=== PATIENT | male | born 1945 | race African-American/Black ===

== ENCOUNTER → 2018-08-25 | Outpatient (CLI) | payer MEDICARE, OTHER ==
--- NOTE | 2018-08-25 10:15 | RADIOLOGY REPORT (SQ) ---
EXAM DESCRIPTION: CHEST 2 VIEWS COMPLETED DATE/TIME: 08/25/2018 10:08 am REASON FOR STUDY: COUGH (R05) COMPARISON: AP chest 10/12/2015 EXAM PARAMETERS: NUMBER OF VIEWS: two views TECHNIQUE: Digital Frontal and Lateral radiographic views of the chest acquired. RADIATION DOSE: NA LIMITATIONS: none FINDINGS: LUNGS AND PLEURA: No opacities, masses or pneumothorax. No pleural effusion. MEDIASTINUM AND HILAR STRUCTURES: No masses or contour abnormalities. HEART AND VASCULAR STRUCTURES: Heart normal size. No evidence for failure. BONES: No acute findings. HARDWARE: None in the chest. OTHER: No other significant finding. IMPRESSION: NO ACUTE RADIOGRAPHIC FINDING IN THE CHEST. TECHNICAL DOCUMENTATION: JOB ID: [id number] [employer]- All Rights Reserved Reading location - IP/workstation name: [email or web address]-[email or web address]
== END ==
LOC: RAD 09:52
PROVIDERS: ATTEND Internal Medicine Gastroenterology
DX: R05 Cough (principal)
CPT/HCPCS: 71046

== ENCOUNTER 2018-10-01 07:44 | Emergency (ER) | payer MEDICARE, OTHER ==
--- NOTE | 2018-10-01 08:05 | ER Document Report ---
ED General - General TRAVEL OUTSIDE OF THE [place] IN LAST 30 DAYS: No <ASIF FAROOQ A - Last Filed: 10/01/18 08:04> <MAYAJOSÉ MANUEL CohenReese Johns - Last Filed: 10/01/18 16:17> - General Chief Complaint: Productive Cough Stated Complaint: COUGH Time Seen by Provider: 10/01/18 08:03 Notes: Patient is a 73-year-old male that presents to the emergency department for chief complaint of cough. Patient reports his been having cough, congestion and runny nose for approximately 1 month now, he is initially treated with Tessalon Perles, and doing [id number] medications such as Coricidin, Mucinex, and Robitussin without much relief of his symptoms, so he decided to come to the emergency department to be reevaluated today. He states his cough has not gotten much better despite these other treatments, he denies having any shortness of breath or difficulty breathing, he denies having any chest pain, shortness of breath, abdominal pain, nausea, vomiting, fevers, chills or night sweats. Denies any other complaints at this time. Past Medical History: Hyperlipidemia, GERD Past Surgical History: Total hip arthroplasty, TURP procedure Social History: Denies tobacco, alcohol or drug use. Family History: Reviewed and noncontributory for presenting illness Allergies: Reviewed, see documented allergy list. REVIEW OF SYSTEMS: Other than noted above, the 12 point review of systems was reviewed with the patient and were negative, all pertinent findings are included in the HPI. PHYSICAL EXAMINATION: Vital signs reviewed, nursing noted reviewed. GENERAL: Well-appearing, well-nourished and in no acute distress. HEAD: Atraumatic, normocephalic. EYES: Eyes appear normal, extraocular movements intact, sclera anicteric, conjunctiva are normal. ENT: Mild bilateral nasal turbinate injection, oropharynx clear without exudates. Moist mucous membranes. NECK: Normal range of motion, supple without lymphadenopathy LUNGS: Breath sounds clear to auscultation bilaterally and equal. No wheezes rales or rhonchi. HEART: Regular rate and rhythm without murmurs ABDOMEN: Soft, nontender, normoactive bowel sounds. No rebound, guarding, or rigidity. No masses appreciated. EXTREMITIES: Nontender, good range of motion, no pitting or edema. NEUROLOGICAL: No focal neurological deficits. Moves all extremities spontaneously Motor and sensory grossly intact on exam. PSYCH: Normal mood, normal affect. SKIN: Warm, Dry, normal turgor, no rashes or lesions noted on exposed skin (MARIA M MAYA) - Related Data Allergies/Adverse Reactions: No Known Allergies Allergy (Verified 10/01/18 07:44) Past Medical History - Social History Family History: Reviewed & Not Pertinent - Past Medical History Cardiac Medical History: Reports: Hx Hypercholesterolemia, Hx Hypertension Renal/ Medical History: Reports: Hx Benign Prostatic Hyperplasia Musculoskeletal Medical History: Reports Hx Arthritis Psychiatric Medical History: Reports: Hx Depression, Hx Post Traumatic Stress Disorder Past Surgical History: Reports: Hx Orthopedic Surgery - Left total hip for arthritis - Immunizations Hx Pneumococcal Vaccination: 09/29/14 <ASIF FAROOQ - Last Filed: 10/01/18 08:04> - Social History Smoking Status: Never Smoker Family History: Reviewed & Not Pertinent <MARIA M MAYA - Last Filed: 10/01/18 16:17> - Vital signs Vitals: Temp Pulse Resp BP Pulse Ox 98.1 F 59 L 18 127/76 H 100 10/01/18 07:47 10/01/18 07:47 10/01/18 07:47 10/01/18 07:47 10/01/18 07:47 Course - Laboratory Result Diagrams: 10/01/18 08:10 10/01/18 08:10 <MARIA M MAYA - Last Filed: 10/01/18 16:17> - Re-evaluation Re-evalutation: Patient seen and examined vital signs reviewed. Laboratory data and imaging were ordered as appropriate for the patient's presenting symptoms and complaint, with consideration of any critical or life threatening conditions that may be associated with their obtained history and exam as noted above. Results were reviewed when available and demonstrated leukopenia, with elevated lymphocyte count, 55%, on my exam the patient did not have any lymphadenopathy, cervical or otherwise, blood work otherwise unremarkable, chest x-ray negative The patient was re-evaluated and was stable, at this point we will plan on discharging the patient on antibiotics, and Flonase, advised to follow-up with his primary care physician if his symptoms did not improve, or to return to the emergency department which she was agreeable to. Results were discussed with the patient at this point, after careful consideration I feel that that patient can be discharged from the emergency department, the patient was educated treatments and reasons to return to the emergency department based on their presumed diagnosis as noted above, they were advised to followup with a primary care physician in 2-3 days. Patient was agreeable to plan of care. *Note is created using voice recognition software and may contain spelling, syntax or grammatical errors. Laboratory 10/01/18 10/01/18 10/01/18 08:10 08:10 08:10 WBC 2.8 L RBC 5.00 Hgb 14.3 Hct 43.4 MCV 87 MCH 28.5 MCHC 32.9 RDW 15.6 H Plt Count 174 Seg Neutrophils % 31.3 L Lymphocytes % 55.5 H Monocytes % 10.5 Eosinophils % 2.4 Basophils % 0.3 Absolute Neutrophils 0.9 L Absolute Lymphocytes 1.5 Absolute Monocytes 0.3 Absolute Eosinophils 0.1 Absolute Basophils 0.0 Sodium 140.0 Potassium 4.3 Chloride 105 Carbon Dioxide 27 Anion Gap 8 BUN 17 Creatinine 0.69 Est GFR ( Amer) > 60 Est GFR (Non-Af Amer) > 60 Glucose 96 Calcium 9.3 Total Bilirubin 0.6 Direct Bilirubin 0.2 Neonat Total Bilirubin Not Reportable Neonat Direct Bilirubin Not Reportable Neonat Indirect Bili Not Reportable AST 40 ALT 36 Alkaline Phosphatase 71 Creatine Kinase 114 CK-MB (CK-2) 0.77 Troponin I < 0.012 Total Protein 7.2 Albumin 4.1 Chest X-Ray 10/01/18 08:01 IMPRESSION: NO ACUTE RADIOGRAPHIC FINDING IN THE CHEST. (AMRIA M MAYA) - Vital Signs Vital signs: Temp Pulse Resp BP Pulse Ox 98.1 F 59 L 16 111/73 99 10/01/18 07:47 10/01/18 07:47 10/01/18 08:20 10/01/18 08:20 10/01/18 08:20 - Laboratory Laboratory results interpreted by me: 10/01/18 08:10 WBC 2.8 L RDW 15.6 H Seg Neutrophils % 31.3 L Lymphocytes % 55.5 H Absolute Neutrophils 0.9 L - EKG Interpretation by Me Additional EKG results interpreted by me: EKG demonstrates bradycardia with a ventricular rate of 58 bpm, slight left axis deviation, normal intervals, no evidence of acute ischemia on this EKG. Compared with prior EKG from 10/12/2015, without significant change. (MARIA M MAYA) Discharge <ASIF FAROOQ Emelia - Last Filed: 10/01/18 08:04> <MARIA M MAYA - Last Filed: 10/01/18 16:17> - Discharge Clinical Impression: URI (upper respiratory infection) Qualifiers: URI type: unspecified URI Qualified Code(s): J06.9 - Acute upper respiratory infection, unspecified Condition: Stable Disposition: HOME, SELF-CARE Instructions: Upper Respiratory Illness ([facility]) Additional Instructions: Please take the antibiotics as prescribed, and use the Flonase as prescribed as well, if you have worsening symptoms, do not hesitate to return to the emergency department. Prescriptions: RX: Amoxicillin Trihydrate [Amoxil 875 mg Tablet] 1 tab PO BID #20 tablet Fluticasone Propionate [Flonase Nasal Shiloh 50 Mcg/Shiloh 16 gm] 1 spray NASL Q12 #1 inhaler Referrals: CHRISTIAN SOLIMAN MD [Primary Care Provider] - Follow up in 3-5 days
[2018-10-01 08:22] VITALS: BP 111/73
--- NOTE | 2018-10-01 08:34 | RADIOLOGY REPORT (SQ) ---
EXAM DESCRIPTION: CHEST SINGLE VIEW COMPLETED DATE/TIME: 10/01/2018 8:21 am REASON FOR STUDY: bed 15 db COMPARISON: 08/25/2018 EXAM PARAMETERS: NUMBER OF VIEWS: One view. TECHNIQUE: Single frontal radiographic view of the chest acquired. RADIATION DOSE: NA LIMITATIONS: None. FINDINGS: LUNGS AND PLEURA: No opacities, masses or pneumothorax. No pleural effusion. MEDIASTINUM AND HILAR STRUCTURES: No masses. Contour normal. HEART AND VASCULAR STRUCTURES: Heart normal in size. Normal vasculature. BONES: No acute findings. HARDWARE: None in the chest. OTHER: No other significant finding. IMPRESSION: NO ACUTE RADIOGRAPHIC FINDING IN THE CHEST. TECHNICAL DOCUMENTATION: JOB ID: [id number] [email or web address]- All Rights Reserved Reading location - IP/workstation name: [email or web address]
[2018-10-01 08:51] LABS: ABSOLUTE EOSINOPHILS # (AUTO) 0.1 10^3/uL (0.0-0.6); ABSOLUTE LYMPHOCYTES (AUTO) 1.5 10^3/uL (0.5-4.7); ABSOLUTE MONOCYTES (AUTO) 0.3 10^3/uL (0.1-1.4); ABSOLUTE NEUT (AUTO) 0.9 10^3/uL (1.7-8.2); BASOPHILS % (AUTO) 0.3 % (0-2); EOSINOPHILS % (AUTO) 2.4 % (0-6); HEMATOCRIT 43.4 % (37.9-51.0); HEMOGLOBIN 14.3 g/dL (13.5-17.0); LYMPHOCYTES % (AUTO) 55.5 % (13-45); MEAN CORPUSCULAR HEMOGLOBIN 28.5 pg (27.0-33.4); MEAN CORPUSCULAR HGB CONC 32.9 g/dL (32.0-36.0); MEAN CORPUSCULAR VOLUME 87 fl (80-97); MONOCYTES % (AUTO) 10.5 % (3-13); PLATELET COUNT 174 10^3/uL (150-450); RED CELL DISTRIBUTION WIDTH 15.6 % (11.5-14.0); SEGMENTED NEUTROPHILS % (AUTO) 31.3 % (42-78); TOTAL CELLS COUNTED % (AUTO) 100 %; WHITE BLOOD COUNT 2.8 10^3/uL (4.0-10.5)
[2018-10-01 09:11] LABS: ALANINE AMINOTRANSFERASE 36 U/L (21-72); ALBUMIN 4.1 g/dL (3.5-5.0); ALKALINE PHOSPHATASE 71 U/L (38-126); ANION GAP 8 (5-19); ASPARTATE AMINO TRANSFERASE 40 U/L (17-59); BILIRUBIN,DIRECT 0.2 mg/dL (0.0-0.4); BILIRUBIN,TOTAL 0.6 mg/dL (0.2-1.3); BLOOD UREA NITROGEN 17 mg/dL (7-20); CALCIUM 9.3 mg/dL (8.4-10.2); CARBON DIOXIDE 27 mmol/L (22-30); CHLORIDE 105 mmol/L (98-107); CREATINE KINASE 114 U/L (55-170); GLUCOSE 96 mg/dL (75-110); POTASSIUM 4.3 mmol/L (3.6-5.0); TOTAL PROTEIN 7.2 g/dL (6.3-8.2)
[2018-10-01 09:27] LABS: CREATINE KINASE MB 0.77 ng/mL (<4.55)
[2018-10-01 09:28] LABS: TROPONIN I < 0.012 ng/mL
--- NOTE | 2018-10-01 13:38 | EKG REPORT ---
SEVERITY:- ABNORMAL ECG - SINUS RHYTHM LEFT VENTRICULAR HYPERTROPHY : Confirmed by: Malka Bennett MD 01-Oct-2018 13:37:42
== END 2018-10-01 09:09 | disposition home or self-care (01) ==
LOC: ER 07:44
DX: J06.9 Acute upper respiratory infection, unspecified (principal); E78.5 Hyperlipidemia, unspecified; K21.9 Gastro-esophageal reflux disease without esophagitis; I10 Essential (primary) hypertension
CPT/HCPCS: 36415; 71045; 80053; 82550; 82553; 84484; 85025; 93005; 93010; 99284

== ENCOUNTER → 2019-06-15 | Outpatient (CLI) | payer MEDICARE, OTHER ==
--- NOTE | 2019-06-15 09:59 | RADIOLOGY REPORT (SQ) ---
EXAM DESCRIPTION: CT ABD/PELVIS COMBO COMPLETED DATE/TIME: 06/15/2019 9:42 am REASON FOR STUDY: N28.1 CYST OF KIDNEY, ACQUIRED N28.1 CYST OF KIDNEY, ACQUIRED R63.4 ABNORMAL CLAYTON GHT LOSS COMPARISON: None. TECHNIQUE: CT scan of the abdomen and pelvis performed with and without intravenous contrast, and wi th oral contrast. Contrasted imaging performed helical scanning technique and dynamic intravenous con trast injection. Images reviewed with lung, soft tissue, and bone windows. Reconstructed coronal and sagittal MPR images reviewed. Delayed images for evaluation of the urinary system also acquired. All images stored on PACS. All CT scanners at this facility use dose modulation, iterative reconstruction, and/or weight based d osing when appropriate to reduce radiation dose to as low as reasonably achievable (ALARA). [facility]: Dose Right [facility]: CareDose [facility]: Dose Right [facility]: Teradose 4D [facility]: openPeople CONTRAST TYPE AND DOSE: contrast/concentration: Isovue 350.00 mg/ml; Total Contrast Delivered: 80.0 ml; Total Saline Delivered: 68.0 ml RENAL FUNCTION: Creatinine 0.9 RADIATION DOSE: CT Rad equipment meets quality standard of care and radiation dose reduction techniq ues were employed. CTDIvol: 10.3 - 10.6 mGy. DLP: 1563 mGy-cm. . LIMITATIONS: None. FINDINGS: NON-CONTRASTED IMAGING: No significant renal or bladder calcifications. No other significa nt organ calcifications. POST-CONTRASTED IMAGING: LOWER CHEST: No significant findings. No nodules or infiltrates. LIVER: There are simple hepatic cysts. No suspicious findings. Normal attenuation. SPLEEN: Normal size. No focal lesions. PANCREAS: No masses. No significant calcifications. No adjacent inflammation or peripancreatic fluid collections. Pancreatic duct not dilated. GALLBLADDER: No identified stones by CT criteria. No inflammatory changes to suggest cholecystitis. ADRENAL GLANDS: No significant masses or asymmetry. RIGHT KIDNEY AND URETER: No solid masses. Several right renal cysts. No significant calcifications . No hydronephrosis or hydroureter. LEFT KIDNEY AND URETER: No solid masses. Several left renal cysts. The largest measures 4.8 cm. N o significant calcifications. No hydronephrosis or hydroureter. AORTA AND VESSELS: No aneurysm. No dissection. Renal arteries, SMA, celiac without stenosis. RETROPERITONEUM: No retroperitoneal adenopathy, hemorrhage or masses. BOWEL AND PERITONEAL CAVITY: No masses or inflammatory changes. No free fluid or peritoneal masses. APPENDIX: Normal. PELVIS: Images are limited to the pelvis due to bilateral hip prostheses. No obvious masses or free fluid. ABDOMINAL WALL: No masses. No hernias. BONES: No significant or acute findings. OTHER: No other significant finding. IMPRESSION: Hepatic and renal cysts. No suspicious findings. No acute findings. TECHNICAL DOCUMENTATION: JOB ID: [id number] Quality ID # [id number]: Final reports with documentation of one or more dose reduction techniques (e.g., Au tomated exposure control, adjustment of the mA and/or kV according to patient size, use of iterative reconstruction technique) 2010 [employer]- All Rights Reserved Reading location - IP/workstation name: [email or web address]
== END ==
LOC: RAD 09:00
PROVIDERS: ATTEND Physician Assistant
DX: N28.1 Cyst of kidney, acquired (principal); R63.4 Abnormal weight loss
CPT/HCPCS: 74178; 82565